=== PATIENT | male | born 1990 | race African-American/Black ===

== ENCOUNTER 2024-03-20 23:06 | Emergency (ER) | payer SELFPAY ==
--- NOTE | ~2024-03-20 | XR_ITS ---
EXAMINATION: XR ankle LT min 3V DATE: 03/20/2024 23:21 INDICATION: Lateral left ankle pain and swelling one week post injury TECHNIQUE: Anteroposterior, oblique, mortise, and lateral views of the left ankle were obtained. COMPARISON: None. FINDINGS: Alignment is normal. No fracture. Joint spaces are well maintained. Soft tissue swelling about the a nkle most prominent over the lateral malleolus. There is a moderate-sized ankle joint effusion. IMPRESSION: 1. Left ankle joint effusion and lateral side, soft tissue swelling. No osseous abnormality. Reviewed, dictated and finalized at location A.
[2024-03-20 23:14] VITALS: BP 120/76; PULSE 70; RESP 13; TEMP 36.6; O2SAT 100
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
[2024-03-21] MEDS: KETOROLAC 15 MG/ML VIAL (*BKC) IM (00:58)
[2024-03-21 01:16] VITALS: BP 128/74; PULSE 64; RESP 15; O2SAT 100
== END 2024-03-21 01:17 | disposition home or self-care (01) ==
LOC: ANHED 03-21 00:40
PROVIDERS: Emergency Provider Emergency Medicine
DX: S93.402A Sprain of unspecified ligament of left ankle, initial encounter (principal); X50.0XXA Overexertion from strenuous movement or load, initial encounter
CPT/HCPCS: 73610; 96372; 99283; J1885